=== PATIENT | female | born 1985 | race Caucasian/White ===

== ENCOUNTER 2017-07-19 23:54 | Emergency (ER) | payer SELFPAY ==
[~2017-07-19] VITALS: Ht 157.5 cm; Wt 81.6 kg
[2017-07-20] MEDS ORDERED: AMPH10CA3 PO (01:19)
[2017-07-20] MEDS ORDERED: ALBUTEROL SULFATE 2.5 MG/3 ML NEBU NEB ONE (02:00)
[2017-07-20] MEDS ORDERED: predniSONE 10 MG TABLET PO ONE (02:00)
[2017-07-20] MEDS ORDERED: IPRATROPIUM BROMIDE 0.5 MG/2.5 ML NEBU NEB ONE (02:00)
[2017-07-20 02:08] LABS: BASOPHILS # (AUTO) 0.1 K/uL (0.0-8.0); BASOPHILS % (AUTO) 0.5 % (0.0-2.0); HEMATOCRIT 35.1 % (31.2-41.9); HEMOGLOBIN 11.6 g/dL (10.9-14.3); LYMPHOCYTES # (AUTO) 1.4 K/uL (20.0-40.0); LYMPHOCYTES % (AUTO) 13.3 % (20.5-51.5); MEAN CORPUSCULAR HEMOGLOBIN 24.6 uug (24.7-32.8); MEAN CORPUSCULAR HGB CONC 33 g/dL (32.3-35.6); MEAN CORPUSCULAR VOLUME 74.3 fL (75.5-95.3); MONOCYTES # (AUTO) 0.6 K/uL (2.0-10.0); MONOCYTES % (AUTO) 5.7 % (0.0-11.0); NEUTROPHILS # (AUTO) 8.5 K/uL (1.8-8.9); NEUTROPHILS % (AUTO) 80.5 % (38.5-71.5); PLATELET COUNT (AUTO) 429 K/uL (179-408); RED BLOOD CELL COUNT(AUTO) 4.72 MIL/uL (3.63-4.92); WHITE BLOOD COUNT (AUTO) 10.5 K/uL (3.8-11.8)
[2017-07-20] MEDS ORDERED: predniSONE 10 MG TABLET ONE (02:14)
[2017-07-20] MEDS ORDERED: predniSONE 50 MG TABLET ONE (02:15)
[2017-07-20 02:20] LABS: BILIRUBIN,DIRECT 0.1 mg/dL (0.0-0.2); BILIRUBIN,TOTAL 0.3 mg/dL (0.2-1.0); CREATININE 0.8 mg/dL (0.6-1.3); POTASSIUM 3.6 mmol/L (3.5-5.1)
[2017-07-20] MEDS ORDERED: ALBUTEROL SULFATE 2.5 MG/3 ML NEBU ONE (02:21)
[2017-07-20] MEDS ORDERED: IPRATROPIUM BROMIDE 0.5 MG/2.5 ML NEBU ONE (02:21)
[2017-07-20] MEDS ORDERED: ACETAMINOPHEN/CODEINE 120-12 MG PER 5 ML LIQUID UDC PO ONE (02:45)
--- NOTE | 2017-07-20 02:50 | NUR ---
Patient discharged to home in stable conditon. Written and verbal after care instructions given. Patient verbalizes understanding of instructions.
[2017-07-20] MEDS ORDERED: ACETAMINOPHEN/CODEINE 120-12 MG PER 5 ML LIQUID UDC ONE (03:03)
== END 2017-07-20 02:51 | disposition home or self-care (01) ==
LOC: ER 23:57
DX: J45.909 Unspecified asthma, uncomplicated (principal)
CPT/HCPCS: 36415; 70030-TC; 71045; 84703; 85025; 93005; A4663; J3590; J7512

== ENCOUNTER 2017-09-17 23:32 | Emergency (ER) | payer SELFPAY ==
[~2017-09-17] VITALS: Ht 157.5 cm; Wt 79.4 kg
[~2017-09-17 23:32] MED LIST: AMPH10CA3 PO
--- NOTE | 2017-09-18 00:01 | NUR ---
PT C/O BILATERAL LOWER EXTREMITY PAIN/SWELLING FOR A FEW DAYS, STATING IT WAS WORSE TODAY. STATES HX OF BLOOD CLOTS IN THE PAST. BOYFRIEND AT BEDSIDE.
--- NOTE | 2017-09-18 00:02 | NUR ---
DR MARIZOL MAZA MD AT BEDSIDE FOR MSE.
--- NOTE | 2017-09-18 00:04 | NUR ---
XRAY CALLED FOR ULTRASOUND ORDER FOR VENOUS DOPPLER.
[2017-09-18] MEDS ORDERED: IBUPROFEN 600 MG TABLET ONE (00:37)
--- NOTE | 2017-09-18 00:44 | NUR ---
US AT PT BEDSIDE.
[2017-09-18] MEDS ORDERED: IBUPROFEN 600 MG TABLET PO ONE (00:45)
[2017-09-18] MEDS ORDERED: FUROSEMIDE 20 MG TABLET ONE (01:14)
[2017-09-18] MEDS ORDERED: FUROSEMIDE 20 MG TABLET PO ONE (01:15)
[2017-09-18] MEDS ORDERED: HYDROCODONE/APAP 10-325 MG TABLET PO ONE (01:15)
[2017-09-18] MEDS ORDERED: HYDROCODONE/APAP 10-325 MG TABLET ONE (01:17)
--- NOTE | 2017-09-18 01:38 | NUR ---
Patient discharged to home in stable conditon. Written and verbal after care instructions given. Patient verbalizes understanding of instructions. Pt ambulated from ER, accompanied by boyfriend. No distress noted.
[2017-09-18 01:47] VITALS: BP 142/97
== END 2017-09-18 01:48 | disposition home or self-care (01) ==
LOC: ER 23:34
DX: R60.9 Edema, unspecified (principal); Z79.899 Other long term (current) drug therapy
CPT/HCPCS: 93005; A4663